=== PATIENT | male | born 1960 | race African-American/Black ===

== ENCOUNTER 2018-04-06 10:27 | Observation (INO) | payer OTHER ==
[~2018-04-06] VITALS: Ht 172.7 cm; Wt 54.0 kg
[~2018-04-06 10:27] MED LIST: OXYC1TAB8 PO; TAMS0.4C2 PO; antibiotic
[2018-04-06] MEDS ORDERED: LACTATED RINGERS 1,000 ML IV SCH (10:41)
[2018-04-06] MEDS ORDERED: THROMBIN 5,000 UNIT VIAL TP ONE (11:25)
[2018-04-06] MEDS ORDERED: BUPIVACAINE/PF-EPI 0.25% 1:200K ONE (11:25)
[2018-04-06] MEDS ORDERED: METHYLENE BLUE 10 MG/ML 10ML ONE (11:25)
[2018-04-06] MEDS ORDERED: MIDAZOLAM 1 MG/ML, 2ML ONE (12:11)
[2018-04-06] MEDS ORDERED: FENTANYL PF 250 MCG/5ML ONE ×2 (12:11→13:49)
[2018-04-06] MEDS ORDERED: BUPIVACAINE/PF-EPI 0.25% 1:200K INFIL ONE (13:49)
[2018-04-06] MEDS ORDERED: MEPERIDINE/PF 25MG/0.5ML IVPush PRN (14:00)
[2018-04-06] MEDS ORDERED: ACETAMINOPHEN 325 MG TABLET PO PRN (14:00)
[2018-04-06] MEDS ORDERED: MORPHINE SULFATE 4 MG/ML, 1ML IVPush PRN (14:00)
[2018-04-06] MEDS ORDERED: OXYcodone 5 MG/5 ML ORAL.SOL UDC PO PRN (14:00)
[2018-04-06] MEDS ORDERED: HYDROcodone/APAP 7.5-325MG/15ML UDC PO PRN (14:00)
[2018-04-06] MEDS ORDERED: hydrALAzine 20 MG/ML, 1ML IV PRN (14:00)
[2018-04-06] MEDS ORDERED: ONDANSETRON ODT 8 MG PO PRN (14:00)
[2018-04-06] MEDS ORDERED: PROMETHAZINE 25 MG/ML, 1ML IV PRN (14:00)
[2018-04-06] MEDS ORDERED: ONDANSETRON 2MG/ML, 2ML IV PRN ×2 (14:00→17:30)
[2018-04-06] MEDS ORDERED: ROCURONIUM 10MG/ML,5ML ONE (15:42)
[2018-04-06] MEDS ORDERED: ONDANSETRON 2MG/ML, 2ML ONE (15:42)
[2018-04-06] MEDS ORDERED: PROPOFOL 10 MG/ML, 20ML ONE (15:42)
[2018-04-06] MEDS ORDERED: NEOSTIGMINE 1 MG/ML, 10ML ONE (15:42)
[2018-04-06] MEDS ORDERED: SUCCINYLCHOLINE 20 MG/ML, 10ML ONE (15:42)
[2018-04-06] MEDS ORDERED: DEXAMETHASONE 4 MG/ML, 1ML ONE (15:42)
[2018-04-06] MEDS ORDERED: CEFAZOLIN 1,000 MG ONE (15:42)
[2018-04-06] MEDS ORDERED: GLYCOPYRROLATE 0.2MG/1ML, 5ML ONE (15:42)
[2018-04-06] MEDS ORDERED: OXYcodone 5 MG/5 ML ORAL.SOL UDC ONE (16:09)
[2018-04-06] MEDS ORDERED: LABETALOL 5MG/ML, 20ML ONE (16:14)
[2018-04-06] MEDS ORDERED: FENTANYL PF 100 MCG/2ML ONE (16:14)
[2018-04-06] MEDS: FENTANYL PF 100 MCG/2ML IV PRN ×2 (16:15→16:25)
[2018-04-06] MEDS: LABETALOL 5MG/ML, 20ML IV PRN ×3 (16:26→16:54)
[2018-04-06] MEDS: D5%-0.45NACL+KCL 20MEQ 1,000 ML IV SCH (18:21)
[2018-04-06] MEDS: ACETAMINOPHEN 500 MG TABLET PO SCH (18:21)
[2018-04-06 20:00] VITALS: BP 128/81
[2018-04-06] MEDS: OXYcodone IR 5MG TABLET PO PRN (20:27)
[2018-04-06] MEDS: CIPROFLOXACIN 500 MG TABLET PO SCH (20:27)
[2018-04-06 23:06] VITALS: BP 114/75
[2018-04-07] MEDS: ACETAMINOPHEN 500 MG TABLET PO SCH ×5 (00:13→23:07)
[2018-04-07] MEDS: OXYcodone IR 5MG TABLET PO PRN ×7 (00:14→21:01)
[2018-04-07 03:52] VITALS: BP 120/72
[2018-04-07] MEDS: D5%-0.45NACL+KCL 20MEQ 1,000 ML IV SCH ×2 (05:02→15:34)
[2018-04-07 06:55] VITALS: BP 123/73
[2018-04-07] MEDS: CIPROFLOXACIN 500 MG TABLET PO SCH ×2 (08:54→21:00)
[2018-04-07 15:08] VITALS: BP 119/81
[2018-04-07 19:31] VITALS: BP 123/80
[2018-04-08 01:00] VITALS: BP 131/91
[2018-04-08] MEDS: OXYcodone IR 5MG TABLET PO PRN ×5 (01:03→22:28)
[2018-04-08] MEDS: D5%-0.45NACL+KCL 20MEQ 1,000 ML IV SCH ×3 (03:14→22:27)
[2018-04-08] MEDS: ACETAMINOPHEN 500 MG TABLET PO SCH ×4 (05:20→23:30)
[2018-04-08 07:11] VITALS: BP 136/87
[2018-04-08] MEDS: CIPROFLOXACIN 500 MG TABLET PO SCH (09:17)
[2018-04-08 09:40] LABS: BASOPHILS # (AUTO) 0.04 x10^3/uL (0-0.1); BASOPHILS % (AUTO) 1 % (0-1); EOSINOPHILS # (AUTO) 0.18 x10^3/uL (0-0.4); EOSINOPHILS % (AUTO) 2 % (1-7); LYMPHOCYTES # (AUTO) 1.77 x10^3/uL (1-3.4); LYMPHOCYTES % (AUTO) 23 % (22-44); MD NO; MEAN CORPUSCULAR HEMOGLOBIN 31.7 pg (27.5-34.5); MEAN PLATELET VOLUME 6.9 fL (7.4-10.4); MONOCYTES # (AUTO) 0.54 x10^3/uL (0.2-0.8); MONOCYTES % (AUTO) 7 % (2-9); NEUTROPHILS # (AUTO) 5.02 x10^3/uL (1.8-6.8); NEUTROPHILS % (AUTO) 67 % (42-75); PLATELET COUNT 294 x10^3/uL (130-400); RED BLOOD COUNT 4.06 x10^6/uL (4.38-5.82); RED CELL DISTRIBUTION WIDTH 14.9 % (9.4-14.8)
[2018-04-08 09:51] LABS: ALANINE AMINOTRANSFERASE 16 U/L (12-78); ALBUMIN 2.9 g/dL (3.4-5.0); ANION GAP 6 mmol/L (5-15); CHLORIDE 106 mmol/L (98-107); CREATININE 0.86 mg/dL (0.7-1.3)
[2018-04-08 09:54] LABS: ALKALINE PHOSPHATASE 66 U/L (45-117); BILIRUBIN,TOTAL 0.6 mg/dL (0.2-1.0); TOTAL PROTEIN 5.9 g/dL (6.4-8.2)
[2018-04-08] MEDS: MORPHINE SULFATE 4 MG/ML, 1ML IV PRN ×5 (11:44→22:06)
[2018-04-08 12:55] VITALS: BP 129/86
[2018-04-08 18:46] VITALS: BP 153/92
[2018-04-09 01:21] VITALS: BP 146/88
[2018-04-09] MEDS: OXYcodone IR 5MG TABLET PO PRN ×3 (04:16→13:53)
[2018-04-09] MEDS: MORPHINE SULFATE 4 MG/ML, 1ML IV PRN ×2 (04:32→07:35)
[2018-04-09] MEDS: ACETAMINOPHEN 500 MG TABLET PO SCH ×2 (05:16→11:28)
[2018-04-09 07:10] VITALS: BP 132/89
[2018-04-09] MEDS: D5%-0.45NACL+KCL 20MEQ 1,000 ML IV SCH (09:22)
[2018-04-09 13:33] VITALS: BP 143/101
[2018-04-09 14:01] VITALS: BP 136/80
== END 2018-04-09 14:30 | disposition home or self-care (01) ==
LOC: OUT 10:27 → 4NOR 17:20 → OUT 17:32 → 4NOR 17:32 → INTOOBSV 17:32
PROVIDERS: ADMIT Urology; ATTEND Urology
DX: N13.5 Crossing vessel and stricture of ureter without hydronephrosis (principal); K66.0 Peritoneal adhesions (postprocedural) (postinfection)
CPT/HCPCS: 36415; 50544; 80053; 82570; 85025; 88305; 96374; 96376; C1729; C1769; C2617; G0378; J0330; J0690; J1100; J2250; J2405; J2704; J2710; J3010; J3480; J3490; J7120; Q9968; S2900; 96375

== ENCOUNTER 2018-04-13 15:48 | Inpatient (IN) | payer OTHER ==
[~2018-04-13] VITALS: Ht 172.7 cm; Wt 53.5 kg
[2018-04-13] MEDS: NICOTINE 21 MG/24 HR PATCH.TD24 TD SCH (18:00)
[2018-04-13] MEDS ORDERED: SODIUM CHLORIDE 0.9% 1,000ML IVBOLUS ONE (18:00)
[2018-04-13] MEDS ORDERED: LORazepam 2 MG/ML, 1ML IVPush PRN (18:00)
[2018-04-13 18:13] LABS: MEAN CORPUSCULAR HEMOGLOBIN 32.1 pg (27.5-34.5); MEAN CORPUSCULAR HGB CONC 33.8 g/dL (33.2-36.2); MEAN CORPUSCULAR VOLUME 95.1 fL (81-97); PLATELET COUNT 332 x10^3/uL (130-400); RED BLOOD COUNT 4.25 x10^6/uL (4.38-5.82); RED CELL DISTRIBUTION WIDTH 14.2 % (9.4-14.8)
[2018-04-13 18:14] LABS: ALBUMIN 3.3 g/dL (3.4-5.0); ANION GAP 7 mmol/L (5-15); CHLORIDE 110 mmol/L (98-107)
[2018-04-13] MEDS ORDERED: SODIUM CHLORIDE FLUSH 10ML SYR IVF ONE (19:00)
[2018-04-13 19:04] LABS: MD YES
[2018-04-13 19:05] LABS: EOS% (MANUAL) 1 % (1-7); LYMPH#(MANUAL) 1.92 x10^3/uL (1-3.4); LYMPHS% (MANUAL) 19 % (22-44); MONOS#(MANUAL) 1.11 x10^3/uL (0.3-2.7); MONOS% (MANUAL) 11 % (2-9); SEG#(MANUAL) 6.97 x10^3/uL (1.8-6.8); SEGS% (MANUAL) 69 % (42-75)
[2018-04-13 19:06] LABS: HEMOGLOBIN A1C 5.8 % (4.2-6.3)
[2018-04-13 19:07] LABS: <RBC MORPHOLOGY> NORMAL
[2018-04-13 19:08] LABS: <PLATELET ESTIMATE> ADEQUATE; <PLT MORPHOLOGY> NORMAL PLT MORPH
[2018-04-13 19:20] VITALS: BP 173/105
[2018-04-13 20:12] VITALS: BP 186/85
[2018-04-13] MEDS: SODIUM CHLORIDE 0.9% 1,000 ML IV SCH (20:14)
[2018-04-13] MEDS: PANTOPRAZOLE 40 MG IV IVPush SCH (20:14)
[2018-04-13] MEDS: ONDANSETRON 2MG/ML, 2ML IVPush PRN (23:13)
[2018-04-13] MEDS: CEFTRIAXONE 1,000 MG in SODIUM CHLORIDE 0.9% 50 ML IV SCH (23:57)
[2018-04-14 01:19] VITALS: BP 161/82
[2018-04-14] MEDS: METRONIDAZOLE PMX 500MG/100ML 100 ML IV SCH ×3 (01:19→17:08)
[2018-04-14] MEDS: SODIUM CHLORIDE 0.9% 1,000 ML IV SCH ×3 (05:08→23:04)
[2018-04-14 05:37] LABS: BASOPHILS # (AUTO) 0.04 x10^3/uL (0-0.1); BASOPHILS % (AUTO) 0 % (0-1); EOSINOPHILS # (AUTO) 0.08 x10^3/uL (0-0.4); EOSINOPHILS % (AUTO) 1 % (1-7); LYMPHOCYTES # (AUTO) 1.56 x10^3/uL (1-3.4); LYMPHOCYTES % (AUTO) 17 % (22-44); MD NO; MEAN CORPUSCULAR HEMOGLOBIN 32.7 pg (27.5-34.5); MEAN CORPUSCULAR HGB CONC 34.1 g/dL (33.2-36.2); MEAN CORPUSCULAR VOLUME 95.8 fL (81-97); MEAN PLATELET VOLUME 7.1 fL (7.4-10.4); MONOCYTES # (AUTO) 0.96 x10^3/uL (0.2-0.8); MONOCYTES % (AUTO) 10 % (2-9); NEUTROPHILS # (AUTO) 6.62 x10^3/uL (1.8-6.8); NEUTROPHILS % (AUTO) 72 % (42-75); PLATELET COUNT 376 x10^3/uL (130-400); RED BLOOD COUNT 3.79 x10^6/uL (4.38-5.82); RED CELL DISTRIBUTION WIDTH 14.3 % (9.4-14.8)
[2018-04-14 05:50] LABS: CHLORIDE 111 mmol/L (98-107)
[2018-04-14 05:57] LABS: ALANINE AMINOTRANSFERASE 18 U/L (12-78); ALBUMIN 2.8 g/dL (3.4-5.0); ALKALINE PHOSPHATASE 66 U/L (45-117); ANION GAP 4 mmol/L (5-15); BILIRUBIN,TOTAL 0.7 mg/dL (0.2-1.0); CALCIUM 8.3 mg/dL (8.5-10.1); CREATININE 1.02 mg/dL (0.7-1.3); TOTAL PROTEIN 6.1 g/dL (6.4-8.2)
[2018-04-14 07:44] VITALS: BP 175/93
[2018-04-14] MEDS: PANTOPRAZOLE 40 MG IV IVPush SCH ×2 (08:03→21:10)
[2018-04-14] MEDS: morphine SULFATE 10 MG/ML, 1ML IVPush PRN ×4 (08:03→14:55)
[2018-04-14] MEDS: ONDANSETRON 2MG/ML, 2ML IVPush PRN (08:03)
[2018-04-14 11:40] VITALS: BP 173/96
[2018-04-14 14:22] VITALS: BP 172/94
[2018-04-14 14:30] VITALS: BP 168/91
[2018-04-14] MEDS: NICOTINE 21 MG/24 HR PATCH.TD24 TD SCH (17:09)
[2018-04-14] MEDS: CEFTRIAXONE 1,000 MG in SODIUM CHLORIDE 0.9% 50 ML IV SCH (18:42)
[2018-04-14 20:14] VITALS: BP 128/75
[2018-04-15] MEDS: METRONIDAZOLE PMX 500MG/100ML 100 ML IV SCH (02:24)
[2018-04-15 02:41] VITALS: BP 160/94
[2018-04-15] MEDS: morphine SULFATE 10 MG/ML, 1ML IVPush PRN ×2 (03:12→07:28)
[2018-04-15 06:12] LABS: ALANINE AMINOTRANSFERASE 17 U/L (12-78); ALBUMIN 2.7 g/dL (3.4-5.0); ANION GAP 7 mmol/L (5-15); CALCIUM 8.1 mg/dL (8.5-10.1); CHLORIDE 112 mmol/L (98-107); CREATININE 0.98 mg/dL (0.7-1.3)
[2018-04-15 06:15] LABS: ALKALINE PHOSPHATASE 63 U/L (45-117); BILIRUBIN,TOTAL 0.5 mg/dL (0.2-1.0); TOTAL PROTEIN 5.9 g/dL (6.4-8.2)
[2018-04-15 07:18] VITALS: BP 175/91
[2018-04-15 08:24] VITALS: BP 159/78
[2018-04-15] MEDS: PANTOPRAZOLE 40 MG IV IVPush SCH ×2 (08:29→20:32)
[2018-04-15] MEDS ORDERED: MORPHINE SULFATE 4 MG/ML, 1ML IVPush PRN (11:00)
[2018-04-15] MEDS: SODIUM CHLORIDE 0.9% 1,000 ML IV SCH (13:15)
[2018-04-15 15:00] VITALS: BP 124/75
[2018-04-15] MEDS: NICOTINE 21 MG/24 HR PATCH.TD24 TD SCH (18:21)
[2018-04-15 20:19] VITALS: BP 190/101
[2018-04-15 21:50] VITALS: BP 192/97
[2018-04-15] MEDS: MORPHINE SULFATE 4 MG/ML, 1ML IVPush PRN (22:28)
[2018-04-15] MEDS ORDERED: PROMETHAZINE 25 MG/ML, 1ML IM PRN (22:30)
[2018-04-15] MEDS: ENALAPRILAT 1.25 MG/ML, 2ML IV PRN (23:18)
[2018-04-16] MEDS: SODIUM CHLORIDE 0.9% 1,000 ML IV SCH ×2 (00:22→21:51)
[2018-04-16] MEDS ORDERED: hydrALAzine 20 MG/ML, 1ML IV ONE (01:30)
[2018-04-16 02:35] VITALS: BP 160/97
[2018-04-16] MEDS: MORPHINE SULFATE 4 MG/ML, 1ML IVPush PRN ×3 (03:27→20:46)
[2018-04-16 05:21] LABS: BASOPHILS # (AUTO) 0.02 x10^3/uL (0-0.1); BASOPHILS % (AUTO) 0 % (0-1); EOSINOPHILS # (AUTO) 0.03 x10^3/uL (0-0.4); EOSINOPHILS % (AUTO) 0 % (1-7); LYMPHOCYTES # (AUTO) 1.18 x10^3/uL (1-3.4); LYMPHOCYTES % (AUTO) 14 % (22-44); MD NO; MEAN CORPUSCULAR HGB CONC 33.6 g/dL (33.2-36.2); MEAN CORPUSCULAR VOLUME 95.2 fL (81-97); MEAN PLATELET VOLUME 7.3 fL (7.4-10.4); MONOCYTES % (AUTO) 7 % (2-9); NEUTROPHILS # (AUTO) 6.34 x10^3/uL (1.8-6.8); NEUTROPHILS % (AUTO) 78 % (42-75); PLATELET COUNT 356 x10^3/uL (130-400); RED BLOOD COUNT 3.64 x10^6/uL (4.38-5.82); RED CELL DISTRIBUTION WIDTH 14.1 % (9.4-14.8)
[2018-04-16 06:02] LABS: ALBUMIN 2.4 g/dL (3.4-5.0); ANION GAP 8 mmol/L (5-15); CALCIUM 7.8 mg/dL (8.5-10.1); CHLORIDE 110 mmol/L (98-107); CREATININE 0.67 mg/dL (0.7-1.3)
[2018-04-16] MEDS ORDERED: MAGNESIUM SULFATE PMX 2GM/50ML 50 ML IV ONE (06:30)
[2018-04-16] MEDS ORDERED: AMLODIPINE 5 MG TABLET PO SCH (06:30)
[2018-04-16 07:12] VITALS: BP 111/71
[2018-04-16] MEDS: PANTOPRAZOLE 40 MG IV IVPush SCH ×2 (10:11→20:46)
[2018-04-16 14:12] VITALS: BP 101/68
[2018-04-16 16:30] VITALS: BP 174/92
[2018-04-16] MEDS ORDERED: SODIUM CHLORIDE 0.9% 1,000 ML IV SCH (17:59)
[2018-04-16] MEDS: NICOTINE 21 MG/24 HR PATCH.TD24 TD SCH (18:00)
[2018-04-16 19:36] VITALS: BP 193/106
[2018-04-16] MEDS: ONDANSETRON 2MG/ML, 2ML IVPush PRN (19:41)
[2018-04-17] MEDS: MORPHINE SULFATE 4 MG/ML, 1ML IVPush PRN ×3 (00:57→19:30)
[2018-04-17 02:39] VITALS: BP 179/115
[2018-04-17 04:29] VITALS: BP 157/93
[2018-04-17] MEDS ORDERED: LABETALOL 5MG/ML, 20ML IVPush PRN (04:30)
[2018-04-17] MEDS ORDERED: hydrALAzine 20 MG/ML, 1ML IV PRN (04:30)
[2018-04-17 05:41] LABS: ALBUMIN 3.1 g/dL (3.4-5.0); ANION GAP 10 mmol/L (5-15); CALCIUM 8.1 mg/dL (8.5-10.1); CHLORIDE 109 mmol/L (98-107)
[2018-04-17 05:45] LABS: ALANINE AMINOTRANSFERASE 20 U/L (12-78); ALKALINE PHOSPHATASE 71 U/L (45-117); BILIRUBIN,TOTAL 0.8 mg/dL (0.2-1.0); CREATININE 0.87 mg/dL (0.7-1.3); TOTAL PROTEIN 6.4 g/dL (6.4-8.2)
[2018-04-17 05:51] LABS: BASOPHILS # (AUTO) 0.08 x10^3/uL (0-0.1); BASOPHILS % (AUTO) 1 % (0-1); EOSINOPHILS # (AUTO) 0.02 x10^3/uL (0-0.4); EOSINOPHILS % (AUTO) 0 % (1-7); LYMPHOCYTES # (AUTO) 1.68 x10^3/uL (1-3.4); LYMPHOCYTES % (AUTO) 14 % (22-44); MD NO; MEAN CORPUSCULAR HGB CONC 33.7 g/dL (33.2-36.2); MEAN CORPUSCULAR VOLUME 95.1 fL (81-97); MEAN PLATELET VOLUME 6.9 fL (7.4-10.4); MONOCYTES # (AUTO) 0.89 x10^3/uL (0.2-0.8); MONOCYTES % (AUTO) 7 % (2-9); NEUTROPHILS # (AUTO) 9.69 x10^3/uL (1.8-6.8); NEUTROPHILS % (AUTO) 78 % (42-75); PLATELET COUNT 487 x10^3/uL (130-400); RED BLOOD COUNT 4.67 x10^6/uL (4.38-5.82); RED CELL DISTRIBUTION WIDTH 13.9 % (9.4-14.8)
[2018-04-17 07:27] VITALS: BP 147/95
[2018-04-17] MEDS: AMLODIPINE 5 MG TABLET PO SCH ×2 (09:25→21:26)
[2018-04-17] MEDS: PANTOPRAZOLE 40 MG IV IVPush SCH ×2 (09:25→21:26)
[2018-04-17] MEDS: SODIUM CHLORIDE 0.9% 1,000 ML IV SCH ×2 (10:27→23:57)
[2018-04-17 13:52] VITALS: BP 147/91
[2018-04-17] MEDS: NICOTINE 21 MG/24 HR PATCH.TD24 TD SCH (17:03)
[2018-04-17 19:34] VITALS: BP 161/95
[2018-04-17 22:50] LABS: OCCULT BLOOD NEGATIVE (NEGATIVE)
[2018-04-18] VITALS (7 sets, daily range): BP systolic 151–184; BP diastolic 92–101
[2018-04-18] MEDS: ENALAPRILAT 1.25 MG/ML, 2ML IV PRN (03:10)
[2018-04-18] MEDS: MORPHINE SULFATE 4 MG/ML, 1ML IVPush PRN ×3 (04:42→22:47)
[2018-04-18] MEDS: PANTOPRAZOLE 40 MG IV IVPush SCH ×2 (08:57→21:19)
[2018-04-18] MEDS: AMLODIPINE 5 MG TABLET PO SCH ×2 (08:57→21:19)
[2018-04-18] MEDS: SODIUM CHLORIDE 0.9% 1,000 ML IV SCH (13:00)
[2018-04-18] MEDS: NICOTINE 21 MG/24 HR PATCH.TD24 TD SCH (17:38)
[2018-04-19 00:09] VITALS: BP 162/93
[2018-04-19] MEDS: SODIUM CHLORIDE 0.9% 1,000 ML IV SCH ×2 (01:54→20:56)
[2018-04-19] MEDS ORDERED: morphine SULFATE 10 MG/ML, 1ML ONE (03:05)
[2018-04-19] MEDS: MORPHINE SULFATE 4 MG/ML, 1ML IVPush PRN ×2 (03:08→22:31)
[2018-04-19 07:14] VITALS: BP 168/94
[2018-04-19] MEDS: PANTOPRAZOLE 40 MG IV IVPush SCH ×2 (09:25→20:56)
[2018-04-19] MEDS: AMLODIPINE 5 MG TABLET PO SCH ×2 (09:25→20:56)
[2018-04-19 13:02] VITALS: BP 146/91
[2018-04-19] MEDS: NICOTINE 21 MG/24 HR PATCH.TD24 TD SCH (18:00)
[2018-04-19 19:24] VITALS: BP 155/91
[2018-04-20 01:15] VITALS: BP 157/86
[2018-04-20 06:04] LABS: ALBUMIN 2.5 g/dL (3.4-5.0); ANION GAP 8 mmol/L (5-15); CALCIUM 7.9 mg/dL (8.5-10.1); CHLORIDE 109 mmol/L (98-107)
[2018-04-20 06:05] LABS: CREATININE 0.66 mg/dL (0.7-1.3)
[2018-04-20 06:10] LABS: BASOPHILS # (AUTO) 0.05 x10^3/uL (0-0.1); BASOPHILS % (AUTO) 1 % (0-1); EOSINOPHILS # (AUTO) 0.31 x10^3/uL (0-0.4); EOSINOPHILS % (AUTO) 3 % (1-7); LYMPHOCYTES # (AUTO) 1.54 x10^3/uL (1-3.4); LYMPHOCYTES % (AUTO) 15 % (22-44); MD NO; MEAN CORPUSCULAR HEMOGLOBIN 31.8 pg (27.5-34.5); MEAN CORPUSCULAR HGB CONC 33.5 g/dL (33.2-36.2); MEAN CORPUSCULAR VOLUME 95.1 fL (81-97); MEAN PLATELET VOLUME 6.8 fL (7.4-10.4); MONOCYTES # (AUTO) 0.84 x10^3/uL (0.2-0.8); MONOCYTES % (AUTO) 8 % (2-9); NEUTROPHILS # (AUTO) 7.87 x10^3/uL (1.8-6.8); NEUTROPHILS % (AUTO) 74 % (42-75); PLATELET COUNT 386 x10^3/uL (130-400); RED BLOOD COUNT 3.98 x10^6/uL (4.38-5.82); RED CELL DISTRIBUTION WIDTH 14.2 % (9.4-14.8)
[2018-04-20] MEDS ORDERED: POLYETHYLENE GLYCOL 17 GM PACKET PO PRN (08:00)
[2018-04-20 08:02] VITALS: BP 144/90
[2018-04-20] MEDS: AMLODIPINE 5 MG TABLET PO SCH ×2 (08:25→21:33)
[2018-04-20] MEDS: DOCUSATE 100 MG CAPSULE PO SCH ×2 (08:25→21:00)
[2018-04-20 15:49] VITALS: BP 136/81
[2018-04-20] MEDS: NICOTINE 21 MG/24 HR PATCH.TD24 TD SCH (17:39)
[2018-04-20 19:23] VITALS: BP 149/87
[2018-04-20] MEDS: MORPHINE SULFATE 4 MG/ML, 1ML IVPush PRN (23:46)
[2018-04-21 00:37] VITALS: BP 172/96
[2018-04-21] MEDS: ENALAPRILAT 1.25 MG/ML, 2ML IV PRN (02:15)
[2018-04-21 03:25] VITALS: BP 139/88
[2018-04-21 08:44] VITALS: BP 138/89
[2018-04-21] MEDS: DOCUSATE 100 MG CAPSULE PO SCH ×2 (09:00→20:47)
[2018-04-21] MEDS: AMLODIPINE 5 MG TABLET PO SCH ×2 (09:02→20:47)
[2018-04-21 14:37] VITALS: BP 116/75
[2018-04-21] MEDS: NICOTINE 21 MG/24 HR PATCH.TD24 TD SCH (17:36)
[2018-04-21 19:04] VITALS: BP 169/90
[2018-04-21] MEDS: MORPHINE SULFATE 4 MG/ML, 1ML IVPush PRN (20:47)
[2018-04-22 01:00] VITALS: BP 170/101
[2018-04-22] MEDS: MORPHINE SULFATE 4 MG/ML, 1ML IVPush PRN (02:07)
[2018-04-22 02:14] VITALS: BP 168/88
[2018-04-22 07:39] VITALS: BP 113/78
[2018-04-22] MEDS: DOCUSATE 100 MG CAPSULE PO SCH ×2 (09:00→21:00)
[2018-04-22] MEDS ORDERED: AMLO5TAB2 PO (09:40)
[2018-04-22] MEDS: AMLODIPINE 5 MG TABLET PO SCH ×2 (09:56→21:00)
[2018-04-22 13:40] VITALS: BP 115/75
[2018-04-22] MEDS: NICOTINE 21 MG/24 HR PATCH.TD24 TD SCH (18:00)
[2018-04-22 19:47] VITALS: BP 137/87
[2018-04-23 01:22] VITALS: BP 136/82
[2018-04-23 08:04] VITALS: BP 124/82
[2018-04-23] MEDS: DOCUSATE 100 MG CAPSULE PO SCH (09:00)
[2018-04-23] MEDS: AMLODIPINE 5 MG TABLET PO SCH (09:00)
[2018-04-23 12:24] VITALS: BP 100/65
== END 2018-04-23 12:26 | disposition home or self-care (01) | DRG 388 ==
LOC: ED 17:09 → EDIP 17:59 → 3NE 19:20
PROVIDERS: ADMIT Internal Medicine; ATTEND Hospitalist
PROC: 0D9670Z Drainage of Stomach with Drainage Device, Via Natural or Artificial Opening (ICD-10-PCS; principal; 2018-04-17)
DX: K56.51 Intestinal adhesions [bands], with partial obstruction (principal); E43 Unspecified severe protein-calorie malnutrition; Z68.1 Body mass index [BMI] 19.9 or less, adult; K56.7 Ileus, unspecified; T81.82XA Emphysema (subcutaneous) resulting from a procedure, initial encounter; Y83.4 Other reconstructive surgery as the cause of abnormal reaction of the patient, or of later complication, without mention of misadventure at the time of the procedure; E83.42 Hypomagnesemia; Z87.891 Personal history of nicotine dependence; Z80.3 Family history of malignant neoplasm of breast; Z80.8 Family history of malignant neoplasm of other organs or systems; Z90.49 Acquired absence of other specified parts of digestive tract; Y92.89 Other specified places as the place of occurrence of the external cause
CPT/HCPCS: 36415; 74018; 74177; 74250; 80048; 80053; 82040; 82272; 82570; 83036; 83735; 84100; 85025; 99285; J0696; J2405; J2550; C9113; J0360; J2270; J3475; J7030